=== PATIENT | female | born 1985 | race Caucasian/White ===

== ENCOUNTER 2017-12-16 10:57 | Emergency (ER) | payer BC, OTHER ==
[~2017-12-16] VITALS: Ht 175.3 cm; Wt 77.1 kg
--- NOTE | 2017-12-16 11:54 | ED General ---
General Chief Complaint: General Problems/Pain Stated Complaint: RANGE OF MOTION LOST IN R ARM Nursing Triage Note: PT PRESENTS TO ER WITH COMPLAINT OF RIGHT ARM NUMBNESS AND RIGHT LEG WEAKNESS FOR ROUGHLY 4 WEEKS. PT STATES IT COMES AND GOES. STATES SHE WENT TO URGENT CARE AND WAS TOLD SHE HAD WALKING PNEUMONIA. STATES SHE THEN WENT TO DR OFFICE AND DID NOT HAVE WALKING PNEUMONIA. Nursing Sepsis Screen: No Definite Risk Source of Information: Patient, Family () Exam Limitations: No Limitations History of Present Illness Date Seen by Provider: Dec 16, 2017 Time Seen by Provider: 11:10 Initial Comments Patient is a 32-year-old female who presents to the emergency room with complaints of intermittent right arm numbness, right leg weakness, for the past 3 weeks. She states that she's been seen by urgent care and was told that she had walking pneumonia and was started on Levaquin which she stopped taking after a couple of doses and has been seen by her primary care provider at the [facility] in [place] twice for similar complaints and she was instructed to go to the emergency room today when she tried to make a third appointment. She reports that she has had low-grade fevers and she also had a tick bite around 2- 3 weeks ago. Timing/Duration: Other (3 weeks) Associated Systoms: Cough, Fever/Chills, Weakness (right arm) Allergies and Home Medications Allergies Coded Allergies: No Known Drug Allergies (Unverified , 12/16/17) Home Medications Doxycycline Hyclate 100 Mg Tablet, 100 MG PO BID Prescribed by: LAKSHMI DIAZ on 12/16/17 1309 Patient Home Medication List Home Medication List Reviewed: Yes Review of Systems Review of Systems Constitutional: see HPI, chills, fever, malaise, weakness Respiratory: see HPI, cough Musculoskeletal: see HPI, muscle weakness (right arm and leg) Psychiatric/Neurological: See HPI, Numbness (right arm), Tingling (right arm) All Other Systems Reviewed Negative Unless Noted: Yes Past Rtgfkdb-Fgwjvu-Iknpbe Hx Past Med/Social Hx: Reviewed Nursing Past Med/Soc Hx Patient Social History Alcohol Use: Occasionally Uses Recreational Drug Use: No Smoking Status: Current Everyday Smoker Type Used: Cigarettes Recent Foreign Travel: No Contact w/Someone Who Travel: No Recent Infectious Disease Expo: No Recent Hopitalizations: No Immunizations Up To Date Tetanus Booster (TDap): Unknown PED Vaccines UTD: Yes Seasonal Allergies Seasonal Allergies: No Past Medical History Surgeries: No Respiratory: No Cardiac: No Neurological: No Genitourinary: No Gastrointestinal: No Musculoskeletal: No Endocrine: No HEENT: No Cancer: No Psychosocial: No Integumentary: No Blood Disorders: No Family Medical History Reviewed Nursing Family Hx Physical Exam Vital Signs Vital Signs - First Documented 12/16/17 11:08 Temp 99.9 Pulse 94 Resp 20 B/P (MAP) 178/25 (75) Pulse Ox 95 O2 Delivery Room Air Capillary Refill : Less Than 3 Seconds Height, Weight, BMI Height: 5'9.00" Weight: 170lbs. oz. 77.146543dq; BMI Method:Stated General Appearance: No Apparent Distress, WD/WN Eyes: Bilateral Eye Normal Inspection, Bilateral Eye PERRL, Bilateral Eye EOMI HEENT: PERRL/EOMI, TMs Normal, Normal ENT Inspection Neck: Full Range of Motion, Normal Inspection, Non Tender, Supple, Carotid Bruit Respiratory: Chest Non Tender, Lungs Clear, Normal Breath Sounds, No Accessory Muscle Use, No Respiratory Distress Cardiovascular: Regular Rate, Rhythm, No Edema, No Gallop, No JVD, No Murmur, Normal Peripheral Pulses Extremity: Normal Capillary Refill, Normal Inspection, Normal Range of Motion, Non Tender, No Calf Tenderness, No Pedal Edema Neurologic/Psychiatric: Alert, Oriented x3, Normal Mood/Affect, Motor Weakness (patient does have motor weakness to the right arm when asked to push or pull against force.) Skin: Normal Color, Warm/Dry Comments NIH- 0 Focused Exam Lactate Level 12/16/17 11:35: Lactic Acid Level 0.86 Lactic Acid Level Progress/Results/Core Measures Suspected Sepsis Recent Fever Within 48 Hours: No Infection Criteria Present: None New/Unexplained Altered Menta: No Sepsis Screen: No Definite Risk SIRS Temperature:99.9 Pulse: 94 Respiratory Rate: 20 Laboratory Tests 12/16/17 11:35: White Blood Count 9.4 Blood Pressure 178 /25 Mean: 75 12/16/17 11:35: Lactic Acid Level 0.86 Laboratory Tests 12/16/17 11:35: Creatinine 0.85, INR Comment 1.0, Platelet Count 231, Total Bilirubin 0.5 Results/Orders Lab Results My Orders Vital Signs/I&O Capillary Refill : Less Than 3 Seconds Blood Pressure Mean: 75 Progress Note : Time: 13:00 Progress Note I have seen and evaluated the patient. I have informed her of normal imaging studies and laboratory findings. She reports that her symptoms have improved at this time. Her numbness has let up. I will be starting her on doxycycline for possible tickborne illness. I have set up an appointment with Judith Dickens for close follow up. She agrees with plan of care, return precautions were given. Diagnostic Imaging Diagonstic Imaging: Xray, CT Plain Films/CT/US/NM/MRI: chest, head Comments NAME: SHAY LAMBERT [facility] REC#: [id number] PHYSICIAN: LAKSHMI DIAZ CC: LAKSHMI DIAZ; MATIAS YOUNG DO Page 1 of 1 RADIOLOGY REPORT VIA [place], [place] CC: LAKSHMI DIAZ; MATIAS YOUNG DO Page 1 of 1 RADIOLOGY REPORT NAME: SHAY LAMBERT [facility] REC#: [id number] PT STATUS: REG ER : 1985 PHYSICIAN: LAKSHMI DIAZ ADMIT DATE: 12/16/17/ER Signed Date of Exam: 12/16/17 CT HEAD WO PROCEDURE: CT head without contrast. TECHNIQUE: Multiple contiguous axial images were obtained through the brain without the use of intravenous contrast. INDICATION: Loss of feeling in right arm and right leg with past 4 days. This occurred approximately 3-4 weeks ago as well with sensation coming back up to 4-5 days. COMPARISON: None FINDINGS: There is no midline shift or mass effect. The ventricles and sulci are unremarkable. No evidence for acute intracranial hemorrhage, abnormal extra-axial fluid collections or cerebral edema is present. The basilar cisterns are unremarkable. The bony calvarium is intact. The visualized paranasal sinuses and mastoid air cells are clear. IMPRESSION: Negative appearing noncontrast CT of the head. Given presenting symptoms, if further imaging desired, followup MRI with and without contrast may be additional benefit. Dictated by: Dictated on workstation # [id number] Dict: 12/16/17 1243 Trans: 12/16/17 1245 Interpreted by: MATIAS YOUNG DO Electronically signed by: MATIAS YOUNG DO 12/16/17 1245 NAME: SHAY LAMBERT [facility] REC#: [id number] PHYSICIAN: LAKSHMI DIAZ CC: LAKSHMI DIAZ; MATIAS YOUNG DO Page 1 of 1 RADIOLOGY REPORT VIA [facility] [place], [place] CC: LAKSHMI DIAZ; MATIAS YOUNG DO Page 1 of 1 RADIOLOGY REPORT NAME: SHAY LAMBERT [facility] REC#: [id number] PT STATUS: REG ER : 1985 PHYSICIAN: LAKSHMI DIAZ ADMIT DATE: 12/16/17/ER Signed Date of Exam: 12/16/17 CHEST 1 VIEW, AP/PA ONLY INDICATION: Loss of feeling right arm and leg past 4 days. Similar symptoms 3-4 weeks ago. TECHNIQUE: Single view chest 2:59 PM. CORRELATION STUDY: 01/07/2016 FINDINGS: The heart size, mediastinal configuration and pulmonary vascularity are within normal limits. The lungs are clear with no consolidating infiltrate. There is no significant effusion or pneumothorax. Slight rightward curvature of the thoracic spine again demonstrated. IMPRESSION: 1. No radiographic findings to suggest acute abnormality of the chest. Dictated by: Dictated on workstation # [id number] Dict: 12/16/17 1249 Trans: 12/16/17 1251 Interpreted by: MATIAS YOUNG DO Electronically signed by: MATIAS YOUNG DO 12/16/17 1251 Reviewed: Reviewed by Me Departure Impression Primary Impression: Tick-borne disease Additional Impression: Muscle weakness (generalized) Disposition: HOME, SELF-CARE Condition: Stable/Unchanged Departure-Patient Inst. Decision time for Depature: 13:05 Referrals: UNKNOWN (PCP) Primary Care Physician Patient Instructions: Peripheral Neuropathy (DC), [place] Spotted Fever (DC) Add. Discharge Instructions: Take medications as directed. You may use ibuprofen and Tylenol to treat the fevers as directed by the bottle. Follow-up with primary care provider on Tuesday. I have made you an appointment with Judith Dickens [employer] REPA[employer] HELPER at 10 AM on 12/19/17. Return back to the emergency room for any worsening symptoms or concerns as needed. All discharge instructions reviewed with patient and/or family. Voiced understanding. Scripts Doxycycline Hyclate (Doxycycline Hyclate) 100 Mg Tablet 100 MG PO BID for 7 Days, #14 TAB Prov: LAKSHMI DIAZ 12/16/17 LAKSHMI DIAZ Dec 16, 2017 11:54
[2017-12-16 11:55] LABS: BASOPHILS # (AUTO) 0.1 10^3/uL (0.0-0.1); BASOPHILS % (AUTO) 1 % (0-10); EOSINOPHILS # (AUTO) 0.3 10^3/uL (0.0-0.3); EOSINOPHILS % (AUTO) 3 % (0-10); HEMATOCRIT 44 % (35-52); HEMOGLOBIN 15.7 G/DL (11.5-16.0); LYMPHOCYTES # (AUTO) 2.7 X 10^3 (1.0-4.0); LYMPHOCYTES % (AUTO) 29 % (12-44); MEAN CORPUSCULAR HEMOGLOBIN 33 PG (25-34); MEAN CORPUSCULAR HGB CONC 35 G/DL (32-36); MEAN CORPUSCULAR VOLUME 95 FL (80-99); MEAN PLATELET VOLUME 9.1 FL (7.4-10.4); MONOCYTES # (AUTO) 0.5 X 10^3 (0.0-1.0); MONOCYTES % (AUTO) 6 % (0-12); NEUTROPHILS # (AUTO) 5.8 X 10^3 (1.8-7.8); NEUTROPHILS % (AUTO) 62 % (42-75); PLATELET COUNT 231 10^3/uL (130-400); RED CELL DISTRIBUTION WIDTH 12.4 % (10.0-14.5); WHITE BLOOD COUNT 9.4 10^3/uL (4.3-11.0)
[2017-12-16 11:59] LABS: BILIRUBIN,URINE NEGATIVE (NEGATIVE); CLARITY,URINE CLEAR; COLOR,URINE YELLOW; GLUCOSE, URINE (UA) NEGATIVE (NEGATIVE); KETONES,URINE NEGATIVE (NEGATIVE); LEUKOCYTE ESTERASE ,URINE NEGATIVE (NEGATIVE); NITRITE,URINE NEGATIVE (NEGATIVE); PH,URINE 8 (5-9); PROTEIN,URINE NEGATIVE (NEGATIVE); UROBILINOGEN,URINE NORMAL (NORMAL)
[2017-12-16 12:09] LABS: PROTHROMBIN TIME PATIENT 12.8 SEC (12.2-14.7)
[2017-12-16 12:14] LABS: ALANINE AMINOTRANSFERASE 7 U/L (0-55); ALBUMIN 4.6 GM/DL (3.2-4.5); ALKALINE PHOSPHATASE 61 U/L (40-136); BACTERIA,URINE NEGATIVE /HPF; BILIRUBIN,TOTAL 0.5 MG/DL (0.1-1.0); BUN/CREATININE RATIO 18; CALCIUM 9.6 MG/DL (8.5-10.1); CARBON DIOXIDE 22 MMOL/L (21-32); CHLORIDE 106 MMOL/L (98-107); CREATININE SERUM 0.85 MG/DL (0.60-1.30); GFR ESTIMATED > 60; GLUCOSE 97 MG/DL (70-105); POTASSIUM 3.8 MMOL/L (3.6-5.0); SODIUM 138 MMOL/L (135-145); SQUAMOUS EPITHELIAL CELL,UR 0-2 /HPF; TOTAL PROTEIN 7.4 GM/DL (6.4-8.2)
--- NOTE | 2017-12-16 12:47 | Diagnostic Imaging Report ---
PROCEDURE: CT head without contrast. TECHNIQUE: Multiple contiguous axial images were obtained through the brain without the use of intravenous contrast. INDICATION: Loss of feeling in right arm and right leg with past 4 days. This occurred approximately 3-4 weeks ago as well with sensation coming back up to 4-5 days. COMPARISON: None FINDINGS: There is no midline shift or mass effect. The ventricles and sulci are unremarkable. No evidence for acute intracranial hemorrhage, abnormal extra-axial fluid collections or cerebral edema is present. The basilar cisterns are unremarkable. The bony calvarium is intact. The visualized paranasal sinuses and mastoid air cells are clear. IMPRESSION: Negative appearing noncontrast CT of the head. Given presenting symptoms, if further imaging desired, followup MRI with and without contrast may be additional benefit. Dictated by: Dictated on workstation # [id number]
--- NOTE | 2017-12-16 12:53 | Diagnostic Imaging Report ---
INDICATION: Loss of feeling right arm and leg past 4 days. Similar symptoms 3-4 weeks ago. TECHNIQUE: Single view chest 2:59 PM. CORRELATION STUDY: 01/07/2016 FINDINGS: The heart size, mediastinal configuration and pulmonary vascularity are within normal limits. The lungs are clear with no consolidating infiltrate. There is no significant effusion or pneumothorax. Slight rightward curvature of the thoracic spine again demonstrated. IMPRESSION: 1. No radiographic findings to suggest acute abnormality of the chest. Dictated by: Dictated on workstation # [id number]
[2017-12-16] MEDS ORDERED: DOXY100T2 PO (13:09)
[2017-12-16 13:36] VITALS: BP 145/101
== END 2017-12-16 13:36 | disposition home or self-care (01) ==
LOC: EDUNIT# 10:57 → ER 10:58
DX: A93.8 Other specified arthropod-borne viral fevers (principal); M62.81 Muscle weakness (generalized); R20.0 Anesthesia of skin; F17.210 Nicotine dependence, cigarettes, uncomplicated
CPT/HCPCS: 36415; 70450; 71045; 80053; 81000; 83605; 84703; 85025; 85610; 85730; 86618; 86666; 86668; 86757; 87040; 87088

== ENCOUNTER → 2017-12-16 | Outpatient (CLI) | payer BC ==
[~2017-12-16] MED LIST: DOXY100T2 PO; GADOBUTROL 7.5 MMOL/7.5 ML (GADAVIST) VIAL IV ONE
--- NOTE | 2017-12-16 18:56 | Diagnostic Imaging Report ---
PROCEDURE: MR imaging of the brain with and without contrast. TECHNIQUE: Multiplanar, multisequence MR imaging of the brain was performed with and without contrast. INDICATION: Loss of feeling and heaviness in the right arm and right leg for the last four days. COMPARISON: No prior MRI studies are available for comparison. FINDINGS: The ventricles and sulci are within normal limits. No sulcal effacement, midline shift, or hemorrhage is detected. There are multiple foci of abnormal signal identified on FLAIR sequences. Several are in the periventricular location, in the mahoney radiata, as well as centrum semiovale on the left. There is abnormal signal in the lateral portion of the left thalamus as well as in the peritrigonal location of the lateral ventricles bilaterally. Increased signal is also identified on diffusion-weighted sequences; however, this may represent T2 shine-through artifact. No abnormal enhancement is identified following contrast administration. Corpus callosum is unremarkable. Sella and parasellar structures are unremarkable. IMPRESSION: There are multiple foci of periventricular white matter signal abnormality noted. Features are concerning for a demyelinating process such as MS. No abnormal enhancement following contrast is seen to suggest active demyelination. Dictated by: Dictated on workstation # [id number]
== END ==
LOC: RAD 17:22
PROVIDERS: ATTEND Nurse Practitioner
DX: R90.82 White matter disease, unspecified (principal); R20.0 Anesthesia of skin
CPT/HCPCS: 70553

== ENCOUNTER → 2017-12-29 | Outpatient (CLI) | payer BC ==
--- NOTE | 2017-12-29 17:45 | Diagnostic Imaging Report ---
EXAM: MRI thoracic spine without and with intravenous contrast. DATE: December 29, 2017. INDICATION: 32-year-old female, loss of feeling and heaviness in the right arm and leg for four days. COMPARISON: MRI brain with and without contrast December 16, 2017. TECHNIQUE: Multiple pre- and post-contrast MRI sequences of the thoracic spine were obtained. FINDINGS: The alignment of the thoracic spine is unremarkable. There is a small benign L1 vertebral body hemangioma. The additional bone marrow signal is unremarkable. There are minimal disc degenerative changes of the thoracic spine. There is no sizable thoracic disc protrusion or extrusion. There is no spinal stenosis at the thoracic spine levels. There is no identified abnormal signal within the visualized portions of the spinal cord. There is no abnormal contrast enhancement. IMPRESSION: 1. No findings to suggest demyelinating disease specifically at the level of the thoracic spine. 2. No abnormal cord signal or enhancement. 3. No sizable thoracic disc protrusion or extrusion. No spinal stenosis at the thoracic spine levels. 4. Unremarkable bone marrow signal. Dictated by: Dictated on workstation # [id number]
--- NOTE | 2017-12-29 18:00 | Diagnostic Imaging Report ---
PROCEDURE: MR imaging cervical spine with and without contrast. TECHNIQUE: Multiplanar and multisequence MRI of the cervical spine was performed with and without contrast. INDICATION: Loss of feeling and heaviness in right arm and right leg. No comparison of the cervical spine available. FINDINGS: Cervical spine alignment is normal. Vertebral body heights appear well maintained. There is no focal marrow signal abnormality present to suggest acute osseous injury or underlying osseous lesion. There is no cord signal abnormality or abnormal cord expansion. There is no abnormal epidural process. C2-C3 unremarkable. C3-C4 demonstrates minimal spondylitic ridging without significant stenosis. C4-C5 demonstrates tiny diffuse disc bulge without significant stenosis. C5-C6 demonstrates mild disc bulging. There is minimal effacement of the ventral aspect of the thecal sac. There is no significant foraminal stenosis. C6-C7 demonstrates minimal disc bulge without significant stenosis. C7-T1 unremarkable. Soft tissues of the neck demonstrate no acute process. Vascular flow voids appear preserved. IMPRESSION: 1. Normal alignment of the cervical spine without evidence of an acute osseous abnormality or suspicious marrow replacing lesion. 2. No cord signal abnormality or abnormal epidural process. 3. Tiny cervical disc bulges. There are no MR findings of significant central canal or neuroforaminal stenosis. Dictated by: Dictated on workstation # [id number]
== END ==
LOC: RAD 16:05
PROVIDERS: ATTEND Psychiatry & Neurology Neurology
DX: M50.20 Other cervical disc displacement, unspecified cervical region (principal); G37.9 Demyelinating disease of central nervous system, unspecified
CPT/HCPCS: 72156; 72157

== ENCOUNTER 2018-03-06 13:21 | Inpatient (IN) | payer BC ==
[~2018-03-06] VITALS: Ht 175.3 cm; Wt 78.0 kg
[~2018-03-06 13:21] MED LIST changes: -GADOBUTROL 7.5 MMOL/7.5 ML (GADAVIST) VIAL IV ONE
[2018-03-06 14:18] LABS: BASOPHILS % (AUTO) 0 % (0-10); EOSINOPHILS # (AUTO) 0.5 10^3/uL (0.0-0.3); EOSINOPHILS % (AUTO) 6 % (0-10); HEMATOCRIT 43 % (35-52); HEMOGLOBIN 15.1 G/DL (11.5-16.0); LYMPHOCYTES # (AUTO) 0.7 X 10^3 (1.0-4.0); LYMPHOCYTES % (AUTO) 9 % (12-44); MEAN CORPUSCULAR HEMOGLOBIN 33 PG (25-34); MEAN CORPUSCULAR HGB CONC 35 G/DL (32-36); MEAN CORPUSCULAR VOLUME 92 FL (80-99); MEAN PLATELET VOLUME 9.6 FL (7.4-10.4); MONOCYTES # (AUTO) 0.5 X 10^3 (0.0-1.0); MONOCYTES % (AUTO) 6 % (0-12); NEUTROPHILS % (AUTO) 78 % (42-75); PLATELET COUNT 150 10^3/uL (130-400); RED BLOOD COUNT 4.63 10^6/uL (4.35-5.85); RED CELL DISTRIBUTION WIDTH 12.4 % (10.0-14.5); WHITE BLOOD COUNT 7.8 10^3/uL (4.3-11.0)
[2018-03-06 14:38] LABS: ALANINE AMINOTRANSFERASE 9 U/L (0-55); ALBUMIN 3.8 GM/DL (3.2-4.5); ALKALINE PHOSPHATASE 57 U/L (40-136); BILIRUBIN,TOTAL 0.6 MG/DL (0.1-1.0); BUN/CREATININE RATIO 12; CALCIUM 8.8 MG/DL (8.5-10.1); CARBON DIOXIDE 23 MMOL/L (21-32); CHLORIDE 102 MMOL/L (98-107); CREATININE SERUM 0.99 MG/DL (0.60-1.30); GFR ESTIMATED > 60; GLUCOSE 94 MG/DL (70-105); LIPASE 10 U/L (8-78); POTASSIUM 3.8 MMOL/L (3.6-5.0); SODIUM 136 MMOL/L (135-145); TOTAL PROTEIN 6.2 GM/DL (6.4-8.2)
[2018-03-06 14:40] LABS: CLARITY,URINE VERY CLOUDY; COLOR,URINE YELLOW; GLUCOSE, URINE (UA) NEGATIVE (NEGATIVE); KETONES,URINE 1+ (NEGATIVE); NITRITE,URINE POSITIVE (NEGATIVE); PH,URINE 6 (5-9); PROTEIN,URINE 3+ (NEGATIVE)
[2018-03-06 14:41] LABS: BACTERIA,URINE MODERATE /HPF; BILIRUBIN,URINE 1+ (NEGATIVE); LEUKOCYTE ESTERASE ,URINE 1+ (NEGATIVE); RBC,URINE 0-2 /HPF; UROBILINOGEN,URINE 4 MG/DL (NORMAL)
[2018-03-06] MEDS ORDERED: NS IV 1000 ML 1,000 ML IV ONE ×2 (14:46→14:47)
[2018-03-06] MEDS ORDERED: cefTRIAXone FOR IV USE 1,000 MG in NS (IVPB) 50 ML IV ONE (15:00)
[2018-03-06] MEDS ORDERED: DIME1CAP PO (15:24)
--- NOTE | 2018-03-06 15:25 | ED Abdominal Pain ---
General Chief Complaint: Abdominal/GI Problems Stated Complaint: SEVERE ABD PAIN Nursing Triage Note: AMB TO ROOM WITH PATIENT REPORTS THAT SINCE TUE HAS HAD ABD PAIN. WAS SEEN IN [facility] UTI AND STARTED ON CIPRO. WAS SEEN IN [place] ER YESTERDAY HAD NEG CT AND LAB. CON'T TO HAVE PAIN MORE IN EPIGASTRCI AREA. WAS TOLD IN [place] TO STOP CIPRO. Sepsis Screen: Possible Sepsis Risk Source of Information: Patient, Old Records Exam Limitations: No Limitations History of Present Illness Date Seen by Provider: Mar 06, 2018 Time Seen by Provider: 13:25 Initial Comments This 32-year-old young lady presents to the emergency room with complaints of fever, upper abdominal pain, vomiting, and diarrhea. She was seen at the [facility] in [place] last March 02 and was started on Cipro for urinary tract infection. She was then seen at the emergency room in [place] on TuesdayMarch 04. She reports a CT scan was performed there that showed only gastroenteritis. UA was clear at that time. She was told to stop her antibiotics. Today she has worsening symptoms with epigastric pain. She is noted to be febrile and tachycardic on presentation. She is treated for MS but denies any other chronic problems. Allergies and Home Medications Allergies Coded Allergies: Penicillins (Verified Allergy, Unknown, HIVES, 03/06/18) Had hives with penicillin as a young child. No anaphylaxis. Patient Home Medication List Home Medication List Reviewed: Yes Review of Systems Review of Systems Constitutional: see HPI, fever EENTM: No Symptoms Reported Respiratory: No Symptoms Reported Cardiovascular: See HPI, Other (tachycardia) Gastrointestinal: See HPI Genitourinary: See HPI Musculoskeletal: no symptoms reported Skin: no symptoms reported Psychiatric/Neurological: No Symptoms Reported Endocrine: No Symptoms Reported Hematologic/Lymphatic: No Symptoms Reported Past Kdvodqd-Jnptbr-Ourtvm Hx Past Med/Social Hx: Reviewed and Corrections made Patient Social History Alcohol Use: Occasionally Uses Recreational Drug Use: No Smoking Status: Current Everyday Smoker Type Used: Cigarettes Recent Foreign Travel: No Contact w/Someone Who Travel: No Recent Infectious Disease Expo: No Recent Hopitalizations: No Immunizations Up To Date Tetanus Booster (TDap): Unknown PED Vaccines UTD: Yes Seasonal Allergies Seasonal Allergies: No Past Medical History Surgeries: No Respiratory: No Cardiac: No Neurological: Yes Multiple Sclerosis Genitourinary: No Gastrointestinal: No Musculoskeletal: No Endocrine: No HEENT: No Cancer: No Psychosocial: No Integumentary: No Blood Disorders: No Physical Exam Vital Signs Vital Signs - First Documented 03/06/18 14:00 Temp 101.0 Pulse 112 Resp 18 B/P (MAP) 134/84 (101) Pulse Ox 98 O2 Delivery Room Air Capillary Refill : Less Than 3 Seconds Height/Weight/BMI Height: 5'9.00" Weight: 172lbs. oz. 78.035696ao; BMI Method:Stated General Appearance: WD/WN, mild distress HEENT: normal ENT inspection, pharynx normal Neck: normal inspection Respiratory: lungs clear, normal breath sounds, no respiratory distress, no accessory muscle use Cardiovascular: no edema, no murmur, tachycardia Gastrointestinal: normal bowel sounds, soft, tenderness (Epigastric) Extremities: normal inspection, no pedal edema Neurologic/Psychiatric: sql server developer II-XII nml as tested, no motor/sensory deficits, alert, normal mood/affect, oriented x 3 Skin: normal color, warm/dry Focused Exam Lactate Level 03/06/18 15:06: Lactic Acid Level 1.01 Lactic Acid Level Laboratory Tests Test 03/06/18 15:06 Lactic Acid Level 1.01 MMOL/L (0.50-2.00) Progress/Results/Core Measures Results/Orders Lab Results Laboratory Tests Test 03/06/18 14:11 03/06/18 14:19 03/06/18 15:06 Range/Units White Blood Count 7.8 4.3-11.0 10^3/uL Red Blood Count 4.63 4.35-5.85 10^6/uL Hemoglobin 15.1 11.5-16.0 G/DL Hematocrit 43 35-52 % Mean Corpuscular Volume 92 80-99 FL Mean Corpuscular Hemoglobin 33 25-34 PG Mean Corpuscular Hemoglobin Concent 35 32-36 G/DL Red Cell Distribution Width 12.4 10.0-14.5 % Platelet Count 150 130-400 10^3/uL Mean Platelet Volume 9.6 7.4-10.4 FL Neutrophils (%) (Auto) 78 H 42-75 % Lymphocytes (%) (Auto) 9 L 12-44 % Monocytes (%) (Auto) 6 0-12 % Eosinophils (%) (Auto) 6 0-10 % Basophils (%) (Auto) 0 0-10 % Neutrophils # (Auto) 6.0 1.8-7.8 X 10^3 Lymphocytes # (Auto) 0.7 L 1.0-4.0 X 10^3 Monocytes # (Auto) 0.5 0.0-1.0 X 10^3 Eosinophils # (Auto) 0.5 H 0.0-0.3 10^3/uL Basophils # (Auto) 0.0 0.0-0.1 10^3/uL Sodium Level 136 135-145 MMOL/L Potassium Level 3.8 3.6-5.0 MMOL/L Chloride Level 102 98-107 MMOL/L Carbon Dioxide Level 23 21-32 MMOL/L Anion Gap 11 5-14 MMOL/L Blood Urea Nitrogen 12 7-18 MG/DL Creatinine 0.99 0.60-1.30 MG/DL Estimat Glomerular Filtration Rate > 60 BUN/Creatinine Ratio 12 Glucose Level 94 70-105 MG/DL Calcium Level 8.8 8.5-10.1 MG/DL Corrected Calcium 9.0 8.5-10.1 MG/DL Total Bilirubin 0.6 0.1-1.0 MG/DL Aspartate Amino Transf (AST/SGOT) 17 5-34 U/L Alanine Aminotransferase (ALT/SGPT) 9 0-55 U/L Alkaline Phosphatase 57 40-136 U/L Total Protein 6.2 L 6.4-8.2 GM/DL Albumin 3.8 3.2-4.5 GM/DL Lipase 10 8-78 U/L Serum Test, Qualitative NEGATIVE NEGATIVE Urine Color YELLOW Urine Clarity VERY CLOUDY H Urine pH 6 5-9 Urine Specific [place] 1.015 L 1.016-1.022 Urine Protein 3+ H NEGATIVE Urine Glucose (UA) NEGATIVE NEGATIVE Urine Ketones 1+ H NEGATIVE Urine Nitrite POSITIVE H NEGATIVE Urine Bilirubin 1+ H NEGATIVE Urine Urobilinogen 4 H NORMAL MG/DL Urine Leukocyte Esterase 1+ H NEGATIVE Urine RBC (Auto) 3+ H NEGATIVE Urine RBC 0-2 /HPF Urine WBC 2-5 /HPF Urine Squamous Epithelial Cells 5-10 /HPF Urine Crystals NONE /LPF Urine Bacteria MODERATE H /HPF Urine Casts NONE /LPF Urine Mucus NEGATIVE /LPF Urine Culture Indicated YES Lactic Acid Level 1.01 0.50-2.00 MMOL/L My Orders Orders - NEELAM PARRY MD Cbc With Automated Diff (03/06/18 13:25) Comprehensive Metabolic Panel (03/06/18 13:25) Hcg,Qualitative Serum (03/06/18 13:25) Lipase (03/06/18 13:25) Ua Culture If Indicated (03/06/18 13:25) Saline Lock/Iv-Start (03/06/18 13:25) Urine Culture (03/06/18 14:19) Ns Iv 1000 Ml (Sodium Chloride 0.9%) (03/06/18 14:46) Blood Culture (03/06/18 14:46) Lactic Acid Analyzer (03/06/18 14:46) Ns Iv 1000 Ml (Sodium Chloride 0.9%) (03/06/18 14:47) Ceftriaxone For Iv Use (Rocephin For I (03/06/18 15:00) Ketorolac Injection (Toradol Injection) (03/06/18 15:30) Medications Given in ED Current Medications Medications Dose Ordered Sig/Nena Route Start Time Stop Time Status Last Admin Dose Admin Ceftriaxone Sodium 1000 mg/ Sodium Chloride 50 ml @ 100 mls/hr ONCE ONCE IV 03/06/18 15:00 03/06/18 15:29 DC 03/06/18 15:32 100 MLS/HR Sodium Chloride 1,000 ml @ 0 mls/hr Q0M ONCE IV 03/06/18 14:46 03/06/18 14:48 DC 03/06/18 14:59 1,000 MLS/HR Sodium Chloride 1,000 ml @ 0 mls/hr Q0M ONCE IV 03/06/18 14:47 03/06/18 14:48 DC 03/06/18 15:31 1,000 MLS/HR Vital Signs/I&O 03/06/18 14:00 Temp 101.0 Pulse 112 Resp 18 B/P (MAP) 134/84 (101) Pulse Ox 98 O2 Delivery Room Air Blood Pressure Mean: 101 Progress Progress Note : Progress Note I contacted Judith Dickens staff at the [place] clinic. Urine culture showed multiple organisms consistent with normal camille. We will request records from her [place] ER visit. 2 L of IV fluids were ordered to administer in the ER along with 1 g of Rocephin. Case was discussed with Dr. Centeno who agrees with admission and treatment for UTI with sepsis. Pain is being treated with Toradol initially. Departure Communication (Admissions) Time/Spoke to Admitting Phy: 15:10 Dr. Centeno Impression Primary Impression: Sepsis Qualified Codes: A41.9 - Sepsis, unspecified organism Additional Impressions: Urinary tract infection Qualified Codes: N39.0 - Urinary tract infection, site not specified Epigastric pain Nausea vomiting and diarrhea Disposition: ADMITTED INPATIENT Condition: Improved Admissions Decision to Admit Reason: Admit from ER (General) Decision to Admit/Date: Mar 06, 2018 Time/Decision to Admit Time: 14:50 Departure-Patient Inst. Referrals: NO,LOCAL PHYSICIAN (PCP/Family) Primary Care Physician NEELAM PARRY MD Mar 06, 2018 15:25
[2018-03-06] MEDS ORDERED: KETOROLAC 30 MG/ML VIAL IVP ONE (15:30)
[2018-03-06 16:40] VITALS: BP 98/50
[2018-03-06] MEDS ORDERED: CATHETER FLUSH 10 ML SYR IV PRN (17:45)
[2018-03-06] MEDS: FAMOTIDINE 20MG/2ML IV (PEPCID) IV SCH ×2 (18:15→18:17)
[2018-03-06] MEDS: NS IV 1000 ML 1,000 ML IV SCH (18:16)
[2018-03-06] MEDS: fentaNYL INJECTION 100 MCG/2 ML AMP IV PRN ×2 (18:16→20:34)
[2018-03-06] MEDS ORDERED: FLU QUADRIvalent (5+ YOA) 2018-2019 (AFLURIA) 0.5 ML IM ONE (19:45)
[2018-03-06 20:00] VITALS: BP 118/72
[2018-03-06] MEDS: KETOROLAC 15 MG/ML VIAL IV PRN (21:44)
[2018-03-07] VITALS (7 sets, daily range): BP systolic 100–114; BP diastolic 56–74
[2018-03-07] MEDS: NS IV 1000 ML 1,000 ML IV SCH ×3 (00:57→22:26)
[2018-03-07] MEDS: fentaNYL INJECTION 100 MCG/2 ML AMP IV PRN ×3 (00:58→11:08)
[2018-03-07] MEDS: IBUPROFEN 600 MG (MOTRIN) TAB PO PRN (01:46)
[2018-03-07] MEDS: KETOROLAC 15 MG/ML VIAL IV PRN ×4 (03:45→23:32)
[2018-03-07 06:15] LABS: BASOPHILS % (AUTO) 0 % (0-10); EOSINOPHILS # (AUTO) 0.5 10^3/uL (0.0-0.3); EOSINOPHILS % (AUTO) 8 % (0-10); HEMATOCRIT 38 % (35-52); HEMOGLOBIN 12.9 G/DL (11.5-16.0); LYMPHOCYTES % (AUTO) 17 % (12-44); MEAN CORPUSCULAR HEMOGLOBIN 32 PG (25-34); MEAN CORPUSCULAR HGB CONC 34 G/DL (32-36); MEAN CORPUSCULAR VOLUME 94 FL (80-99); MEAN PLATELET VOLUME 9.8 FL (7.4-10.4); MONOCYTES # (AUTO) 0.4 X 10^3 (0.0-1.0); MONOCYTES % (AUTO) 7 % (0-12); NEUTROPHILS # (AUTO) 4.3 X 10^3 (1.8-7.8); NEUTROPHILS % (AUTO) 68 % (42-75); PLATELET COUNT 123 10^3/uL (130-400); RED CELL DISTRIBUTION WIDTH 12.2 % (10.0-14.5); WHITE BLOOD COUNT 6.3 10^3/uL (4.3-11.0)
[2018-03-07 06:30] LABS: BUN/CREATININE RATIO 15; CALCIUM 7.8 MG/DL (8.5-10.1); CARBON DIOXIDE 17 MMOL/L (21-32); CHLORIDE 111 MMOL/L (98-107); CREATININE SERUM 0.74 MG/DL (0.60-1.30); GFR ESTIMATED > 60; GLUCOSE 78 MG/DL (70-105); POTASSIUM 3.2 MMOL/L (3.6-5.0); SODIUM 138 MMOL/L (135-145)
[2018-03-07] MEDS ORDERED: CIPR500T4 PO (08:34)
[2018-03-07] MEDS: FAMOTIDINE 20MG/2ML IV (PEPCID) IV SCH ×2 (08:46→20:08)
[2018-03-07] MEDS: cefTRIAXone 1 GM/NS 50 ML IVPB IV SCH ×2 (08:47)
--- NOTE | 2018-03-07 11:17 | History & Physical-Hospitalist ---
History of Present Illness HPI/Chief Complaint The patient is a 32-year-old white female who presented to the emergency room yesterday with complaints of fever and generalized malaise. She reported that she had been seen at a walk-in clinic earlier last week and had been diagnosed as having a urinary tract infection and was placed on Cipro. She was then seen again at another facility on Tuesday and told that she did not have a urinary tract infection and the Cipro was stopped. She really return to our emergency room yesterday and it certainly appears that she had a full-blown urinary tract infection the basis of her urine character. She was recently diagnosed as having multiple sclerosis. She has been seen by the neurology Department at [facility] and was started on a new medication about 3 weeks ago. She reports she has not really felt well during this period of time and wonders if that is somehow related. She reports occasional urinary tract infections through her adult life. During the night she had multiple fevers documented with a peak of 103.1. Her white blood count was 7800 in the emergency room and 6300 this morning. She now reports that she is hungry and has not suffered from any nausea. Date Seen 03/07/18 Time Seen by a Provider: 11:12 Attending Physician Justin Means MD PCP Benny Iyer MD Referring Physician Date of Admission Mar 06, 2018 at 15:21 Home Medications & Allergies Home Medications Reviewed patient Home Medication Reconciliation performed by pharmacy medication reconciliations bench lay out technician and/or nursing. Patients Allergies have been reviewed. Allergies Allergies Coded Allergies Penicillins (Verified Allergy, Unknown, HIVES, 03/06/18) Had hives with penicillin as a young child. No anaphylaxis. Past Fzsjend-Akkbna-Unlnie Hx Past Med/Social Hx: Reviewed and Corrections made Patient Social History Alcohol Use: Occasionally Uses Recreational Drug Use: No Smoking Status: Current Everyday Smoker Type Used: Cigarettes Physical Abuse Screen: No Sexual Abuse: No Recent Foreign Travel: No Contact w/other who traveled: No Recent Hopitalizations: No Recent Infectious Disease Expo: No Immunizations Up To Date Tetanus Booster (TDap): Unknown Pediatric: Yes Seasonal Allergies Seasonal Allergies: No Past Medical History Neurological: Multiple Sclerosis History of Blood Disorders: No Review of Systems Constitutional: see HPI EENTM: no symptoms reported Respiratory: no symptoms reported Cardiovascular: no symptoms reported Gastrointestinal: no symptoms reported Genitourinary: dysuria, frequency Musculoskeletal: other (multiple sclerosis) Skin: no symptoms reported Psychiatric/Neurological: Numbness, Paresthesia (multiple sclerosis), Weakness Physical Exam Physical Exam Vital Signs Vital Signs - First Documented 03/06/18 14:00 Temp 101.0 Pulse 112 Resp 18 B/P (MAP) 134/84 (101) Pulse Ox 98 O2 Delivery Room Air Capillary Refill : Less Than 3 Seconds Height, Weight, BMI Height: 5'9.00" Weight: 172lbs. 0.0oz. 78.486485ch; 25.4 BMI Method:Stated General Appearance: Other (she is alert and her cheeks are flushed) Eyes: Bilateral Eye Normal Inspection HEENT: Normal ENT Inspection Neck: Full Range of Motion, Normal Inspection, Non Tender, Supple, Carotid Bruit Respiratory: Normal Breath Sounds Cardiovascular: Regular Rate, Rhythm Gastrointestinal: Normal Bowel Sounds, No Organomegaly, No Pulsatile Mass, Non Tender, Soft Back: Normal Inspection Extremity: Normal Capillary Refill, Normal Inspection, Normal Range of Motion, Non Tender, No Calf Tenderness, No Pedal Edema Neurologic/Psychiatric: Alert, Oriented x3 Skin: Normal Color, Warm/Dry Results Results/Procedures Labs Laboratory Tests 03/06/18 14:11 03/07/18 05:50 Patient resulted labs reviewed. Assessment/Plan Admission Diagnosis Urinary tract infection. 2.recent diagnosis of multiple sclerosis Admission Status: Observation Assessment and Plan IV fluids. Antibiotics. Early discharge if possible Clinical Quality Measures DVT/VTE Risk/Contraindication: Risk Factor Score Per Nursin RFS Level Per Nursing on Admit: 1=Low/No VTE PPX JUSTIN MEANS MD Mar 07, 2018 11:17
[2018-03-07] MEDS: fentaNYL INJECTION 100 MCG/2 ML AMP IVP PRN ×2 (14:53→22:12)
[2018-03-07] MEDS: DIMETHYL FUMARATE 240 MG PO SCH (19:08)
[2018-03-08 04:20] VITALS: BP 112/67
[2018-03-08] MEDS: KETOROLAC 15 MG/ML VIAL IV PRN (05:48)
[2018-03-08] MEDS: NS IV 1000 ML 1,000 ML IV SCH ×2 (07:45→07:54)
[2018-03-08] MEDS: cefTRIAXone 1 GM/NS 50 ML IVPB IV SCH ×2 (07:56)
[2018-03-08] MEDS: FAMOTIDINE 20 MG (PEPCID) TABLET PO SCH ×2 (07:56→20:10)
[2018-03-08] MEDS: DIMETHYL FUMARATE 240 MG PO SCH ×2 (07:56→20:10)
[2018-03-08 08:00] VITALS: BP 125/72
[2018-03-08 09:11] LABS: BASOPHILS % (AUTO) 0 % (0-10); EOSINOPHILS # (AUTO) 0.7 10^3/uL (0.0-0.3); EOSINOPHILS % (AUTO) 11 % (0-10); HEMATOCRIT 34 % (35-52); HEMOGLOBIN 11.8 G/DL (11.5-16.0); LYMPHOCYTES # (AUTO) 1.3 X 10^3 (1.0-4.0); LYMPHOCYTES % (AUTO) 21 % (12-44); MEAN CORPUSCULAR HEMOGLOBIN 32 PG (25-34); MEAN CORPUSCULAR HGB CONC 35 G/DL (32-36); MEAN CORPUSCULAR VOLUME 93 FL (80-99); MEAN PLATELET VOLUME 9.6 FL (7.4-10.4); MONOCYTES # (AUTO) 0.8 X 10^3 (0.0-1.0); MONOCYTES % (AUTO) 12 % (0-12); NEUTROPHILS # (AUTO) 3.5 X 10^3 (1.8-7.8); NEUTROPHILS % (AUTO) 56 % (42-75); PLATELET COUNT 140 10^3/uL (130-400); RED BLOOD COUNT 3.65 10^6/uL (4.35-5.85); RED CELL DISTRIBUTION WIDTH 12.4 % (10.0-14.5); WHITE BLOOD COUNT 6.2 10^3/uL (4.3-11.0)
--- NOTE | 2018-03-08 09:29 | Progress Note-Hospitalist ---
AGUIRREDONATO 03/08/18 0928: Subjective HPI/CC On Admission Date Seen by Provider: Mar 08, 2018 Time Seen by Provider: 09:00 The patient is a 32-year-old white female who presented to the emergency room yesterday with complaints of fever and generalized malaise. She reported that she had been seen at a walk-in clinic earlier last week and had been diagnosed as having a urinary tract infection and was placed on Cipro. She was then seen again at another facility on Tuesday and told that she did not have a urinary tract infection and the Cipro was stopped. She really return to our emergency room yesterday and it certainly appears that she had a full-blown urinary tract infection the basis of her urine character. She was recently diagnosed as having multiple sclerosis. She has been seen by the neurology Department at [facility] and was started on a new medication about 3 weeks ago. She reports she has not really felt well during this period of time and wonders if that is somehow related. She reports occasional urinary tract infections through her adult life. During the night she had multiple fevers documented with a peak of 103.1. Her white blood count was 7800 in the emergency room and 6300 this morning. She now reports that she is hungry and has not suffered from any nausea. Subjective/Events-last exam Pt is doing well Abdominal pain improved Fever improved Tolerating Rocephin antibiotic well Updated patient and Likely discharge tomorrow Pending labs Low potassium noted Will ambulate today Review of Systems General: Fatigue Gastrointestinal: Abdominal Pain Focused Exam Lactate Level 03/06/18 15:06: Lactic Acid Level 1.01 Objective Exam Vital Signs Vital Signs Date Time Temp Pulse Resp B/P (MAP) Pulse Ox O2 Delivery O2 Flow Rate FiO2 03/08/18 08:00 98.0 94 18 125/72 (89) 98 Room Air Capillary Refill : Less Than 3 Seconds General Appearance: No Apparent Distress, WD/WN Respiratory: Chest Non Tender, Lungs Clear, Normal Breath Sounds, No Accessory Muscle Use, No Respiratory Distress Cardiovascular: Regular Rate, Rhythm, No Edema, No Gallop, No JVD, No Murmur, Normal Peripheral Pulses Neurologic/Psychiatric: Alert, Oriented x3, No Motor/Sensory Deficits, Normal Mood/Affect Results/Procedures Lab Laboratory Tests 03/08/18 09:03 Patient resulted labs reviewed. Assessment/Plan Assessment and Plan Assess & Plan/Chief Complaint Assessment: Sepsis Pyelonephritis Recent MS dx Abdominal pain with N/V-improved Plan: IV abx IVF Ambulate Fever meds Diagnosis/Problems Diagnosis/Problems (1) Sepsis Status: Acute Qualifiers: Sepsis type: sepsis due to unspecified organism Qualified Codes: A41.9 - Sepsis, unspecified organism (2) Urinary tract infection Status: Acute Qualifiers: Urinary tract infection type: site unspecified Hematuria presence: without hematuria Qualified Codes: N39.0 - Urinary tract infection, site not specified (3) Epigastric pain Status: Acute (4) Nausea vomiting and diarrhea Status: Acute (5) Multiple sclerosis Status: Chronic Clinical Quality Measures DVT/VTE Risk/Contraindication: Risk Factor Score Per Nursin RFS Level Per Nursing on Admit: 1=Low/No VTE PPX NEELAM BERNABE MED STUDENT 03/08/18 0944: Subjective Subjective/Events-last exam Patient states that she is feeling better this morning She is describing upper abdominal pain and pain in her back that she says feels like a twisting pressure She reports a cough that is not productive She has not felt like eating Objective Exam General Appearance: No Apparent Distress, WD/WN Respiratory: Chest Non Tender, Lungs Clear, Normal Breath Sounds, No Accessory Muscle Use, No Respiratory Distress Cardiovascular: Regular Rate, Rhythm, No Edema, No Gallop, No JVD, No Murmur Neurologic/Psychiatric: Alert, Oriented x3, No Motor/Sensory Deficits, Normal Mood/Affect Skin: Normal Color, Warm/Dry Assessment/Plan Assessment and Plan Assess & Plan/Chief Complaint Assessment: 1) Sepsis 2) UTI 3) Nausea/vomiting/diarrhea 4) Recent MS diagnosis Plan: 1) Continue IV fluids 2) Continue IV abx 3) Walk up and down hallway 4) IA tomorrow DONATO AGUIRRE DO Mar 08, 2018 09:28 NEELAM BERNABE MED STUDENT Mar 08, 2018 09:44
[2018-03-08 09:33] LABS: ALANINE AMINOTRANSFERASE 14 U/L (0-55); ALBUMIN 2.9 GM/DL (3.2-4.5); ALKALINE PHOSPHATASE 47 U/L (40-136); BILIRUBIN,TOTAL 0.4 MG/DL (0.1-1.0); BUN/CREATININE RATIO 6; CALCIUM 7.7 MG/DL (8.5-10.1); CARBON DIOXIDE 20 MMOL/L (21-32); CHLORIDE 110 MMOL/L (98-107); GFR ESTIMATED > 60; GLUCOSE 86 MG/DL (70-105); POTASSIUM 3.1 MMOL/L (3.6-5.0); SODIUM 141 MMOL/L (135-145); TOTAL PROTEIN 4.8 GM/DL (6.4-8.2)
[2018-03-08] MEDS: fentaNYL INJECTION 100 MCG/2 ML AMP IVP PRN (11:15)
[2018-03-08] MEDS: ONDANSETRON 4 MG/2 ML (SDV) Z0FRAN IV PRN (11:15)
[2018-03-08 12:00] VITALS: BP 115/71
[2018-03-08] MEDS ORDERED: MAGNESIUM 1 GM/100 ML IVPB 100 ML IV ONE (12:15)
[2018-03-08] MEDS: ENOXAPARIN 40 MG/0.4 ML (LOVENOX) SYR SC SCH (12:22)
[2018-03-08] MEDS: POTASSIUM CL 10MEQ/50ML IVPB 50 ML IV SCH ×3 (12:22→14:24)
[2018-03-08] MEDS: POTASSIUM CHLORIDE INJ 10 MEQ in NS IV 1000 ML 1,000 ML IV SCH ×2 (14:25→21:03)
[2018-03-08 16:00] VITALS: BP 111/59
[2018-03-08 20:00] VITALS: BP 114/72
[2018-03-09] VITALS: BP 122/77
[2018-03-09] MEDS: ONDANSETRON 4 MG/2 ML (SDV) Z0FRAN IV PRN ×2 (00:54→09:08)
[2018-03-09] MEDS: IBUPROFEN 600 MG (MOTRIN) TAB PO PRN (01:02)
[2018-03-09] MEDS ORDERED: SCOPOLAMINE 1.5 MG (TRANSDERM-SCOP) PATCH TD ONE (02:00)
[2018-03-09] MEDS ORDERED: PROMETHAZINE INJ 25 MG/ML (PHENERGAN) AMP IM PRN (02:00)
[2018-03-09 04:00] VITALS: BP 120/70
[2018-03-09] MEDS: POTASSIUM CHLORIDE INJ 10 MEQ in NS IV 1000 ML 1,000 ML IV SCH (04:27)
[2018-03-09 04:56] LABS: BASOPHILS % (AUTO) 0 % (0-10); EOSINOPHILS # (AUTO) 0.6 10^3/uL (0.0-0.3); EOSINOPHILS % (AUTO) 9 % (0-10); HEMATOCRIT 36 % (35-52); HEMOGLOBIN 12.5 G/DL (11.5-16.0); LYMPHOCYTES % (AUTO) 15 % (12-44); MEAN CORPUSCULAR HEMOGLOBIN 32 PG (25-34); MEAN CORPUSCULAR HGB CONC 35 G/DL (32-36); MEAN CORPUSCULAR VOLUME 93 FL (80-99); MEAN PLATELET VOLUME 9.7 FL (7.4-10.4); MONOCYTES # (AUTO) 0.6 X 10^3 (0.0-1.0); MONOCYTES % (AUTO) 9 % (0-12); NEUTROPHILS # (AUTO) 4.6 X 10^3 (1.8-7.8); NEUTROPHILS % (AUTO) 67 % (42-75); PLATELET COUNT 169 10^3/uL (130-400); RED CELL DISTRIBUTION WIDTH 12.5 % (10.0-14.5); WHITE BLOOD COUNT 6.8 10^3/uL (4.3-11.0)
[2018-03-09 05:18] LABS: ALANINE AMINOTRANSFERASE 27 U/L (0-55); ALBUMIN 3.2 GM/DL (3.2-4.5); ALKALINE PHOSPHATASE 70 U/L (40-136); BILIRUBIN,TOTAL 0.4 MG/DL (0.1-1.0); BUN/CREATININE RATIO 5; CARBON DIOXIDE 17 MMOL/L (21-32); CHLORIDE 110 MMOL/L (98-107); CREATININE SERUM 0.64 MG/DL (0.60-1.30); GFR ESTIMATED > 60; GLUCOSE 89 MG/DL (70-105); POTASSIUM 3.6 MMOL/L (3.6-5.0); SODIUM 140 MMOL/L (135-145); TOTAL PROTEIN 5.2 GM/DL (6.4-8.2)
[2018-03-09 08:45] VITALS: BP 119/78
[2018-03-09] MEDS: DIMETHYL FUMARATE 240 MG PO SCH (08:59)
[2018-03-09] MEDS: FAMOTIDINE 20 MG (PEPCID) TABLET PO SCH (08:59)
[2018-03-09] MEDS: cefTRIAXone 1 GM/NS 50 ML IVPB IV SCH ×2 (09:00)
[2018-03-09] MEDS ORDERED: SCOP1PAT17 TD (11:05)
[2018-03-09] MEDS ORDERED: ONDA8TAB6 PO (11:05)
[2018-03-09] MEDS ORDERED: CEFD300C3 PO (11:05)
--- NOTE | 2018-03-09 11:09 | Discharge Summary-Hospitalist ---
DONATO AGUIRRE DO 03/09/18 1109: Diagnosis/Chief Complaint Date of Admission Mar 06, 2018 at 15:21 Date of Discharge Discharge Date: Mar 09, 2018 Admission Diagnosis Urinary tract infection. 2.recent diagnosis of multiple sclerosis Discharge Diagnosis (1) Gallbladder sludge Status: Acute (2) Thickening of wall of gallbladder Status: Acute (3) Sepsis Status: Resolved (4) Urinary tract infection Status: Acute (5) Epigastric pain Status: Acute (6) Nausea vomiting and diarrhea Status: Acute (7) Multiple sclerosis Status: Chronic Discharge Summary Discharge Physical Exam Allergies: Coded Allergies: Penicillins (Verified Allergy, Unknown, HIVES, 03/06/18) Had hives with penicillin as a young child. No anaphylaxis. Vitals & I&Os Vital Signs Date Time Temp Pulse Resp B/P (MAP) Pulse Ox O2 Delivery O2 Flow Rate FiO2 03/09/18 18:50 99 16 92/54 96 Room Air 03/09/18 17:20 98.8 General Appearance: WD/WN, Moderate Distress (due to pain and nausea) Respiratory: Chest Non Tender, Lungs Clear, Normal Breath Sounds, No Accessory Muscle Use, No Respiratory Distress Cardiovascular: Regular Rate, Rhythm, No Edema, No Gallop, No JVD, No Murmur, Normal Peripheral Pulses Gastrointestinal: Normal Bowel Sounds, No Organomegaly, No Pulsatile Mass, Soft , Tenderness (RUQ) Neurologic/Psychiatric: Alert, Oriented x3, No Motor/Sensory Deficits, Normal Mood/Affect Hospital Course Hospital course: patient was admitted for sepsis and placed on IVF and abx. N/V treatment was successful until day of planned DC and RUQ abd pain worsened and GB USG obtained which revealed gallbladder sludge and wall thickening prompting consult to Dr Collins for choly. That was completed in an uncomplicated manner. Labs (last 24 hrs) Laboratory Tests 03/09/18 04:42: White Blood Count 6.8, Red Blood Count 3.90L, Hemoglobin 12.5, Hematocrit 36, Mean Corpuscular Volume 93, Mean Corpuscular Hemoglobin 32, Mean Corpuscular Hemoglobin Concent 35, Red Cell Distribution Width 12.5, Platelet Count 169, Mean Platelet Volume 9.7, Neutrophils (%) (Auto) 67, Lymphocytes (%) (Auto) 15, Monocytes (%) (Auto) 9, Eosinophils (%) (Auto) 9, Basophils (%) (Auto) 0, Neutrophils # (Auto) 4.6, Lymphocytes # (Auto) 1.0, Monocytes # (Auto) 0.6, Eosinophils # (Auto) 0.6H, Basophils # (Auto) 0.0, Sodium Level 140, Potassium Level 3.6, Chloride Level 110H, Carbon Dioxide Level 17L, Anion Gap 13, Blood Urea Nitrogen 3L, Creatinine 0.64, Estimat Glomerular Filtration Rate > 60, BUN/ Creatinine Ratio 5, Glucose Level 89, Calcium Level 8.0L, Corrected Calcium 8.6 , Total Bilirubin 0.4, Aspartate Amino Transf (AST/SGOT) 52H, Alanine Aminotransferase (ALT/SGPT) 27, Alkaline Phosphatase 70, Total Protein 5.2L, Albumin 3.2 03/09/18 13:50: Urine Test NEGATIVE Microbiology 03/06/18 Blood Culture - Preliminary, Resulted No growth 03/06/18 Urine Culture - Final, Complete See Report Patient resulted labs reviewed. Pending Labs Laboratory Tests 03/09/18 13:50: Urine Test NEGATIVE Discussion & Recommendations Discharge Planning: <30 minutes discharge planning Discharge Home Medications: Active Scripts Active Hydrocodone/Acetaminophen 5/325mg Tablet (Acetaminophen/Hydrocodone Bitart) 1 Tab Tab 1 Tab PO Q6H PRN MDD 10 Zofran (Ondansetron HCl) 8 Mg Tablet 8 Mg PO Q6H Scopolamine 1 Each Patch.td.3 1 Each TD UD every 3 days prn nausea Cefdinir 300 Mg Capsule 300 Mg PO BID Reported Tecfidera (Dimethyl Fumarate) 1 Each Capsule.dr 1 Cap PO BID Instructions to patient/family Please see electronic discharge instructions given to patient. Clinical Quality Measures DVT/VTE Risk/Contraindication: Risk Factor Score Per Nursin RFS Level Per Nursing on Admit: 1=Low/No VTE PPX NEELAM BERNABE MED STUDENT 03/09/18 1121: Discharge Summary Discharge Physical Exam Allergies: Coded Allergies: Penicillins (Verified Allergy, Unknown, HIVES, 03/06/18) Had hives with penicillin as a young child. No anaphylaxis. General Appearance: No Apparent Distress, WD/WN Respiratory: Chest Non Tender, Lungs Clear, Normal Breath Sounds, No Accessory Muscle Use, No Respiratory Distress Cardiovascular: Regular Rate, Rhythm, No Edema, No Gallop, No JVD, No Murmur Gastrointestinal: Normal Bowel Sounds Skin: Normal Color, Warm/Dry Neurologic/Psychiatric: Alert, Oriented x3, No Motor/Sensory Deficits, Normal Mood/Affect Hospital Course The patient is a 32 year old female that presented to the [facility] ER on Mar 06 with a chief complaint of fever, upper abdominal pain, vomiting, and diarrhea. Her symptoms began on TuesdayFeb.28 and she went to the [facility] in [place] on Mar.02. where she was treated for a UTI with ciprofloxacin. Her symptoms increased over the next few days and she went to [facility] on TuesdayMar.04. CT scan showed gastroenteritis and UA was clear and she was instructed to discontinue the antibiotics. Her symptoms continued to worsen until she presented to [facility] ER. On presentation she was found to have fever and tachycardia and was admitted for observation and treatment. She was administered IVF and IV ceftriaxone and gradually improved over the course of several days. She will be discharged this afternoon following a gallbladder US. Problem Qualifiers (1) Sepsis: Sepsis type: sepsis due to unspecified organism Qualified Codes: A41.9 - Sepsis, unspecified organism (2) Urinary tract infection: Urinary tract infection type: site unspecified Hematuria presence: without hematuria Qualified Codes: N39.0 - Urinary tract infection, site not specified DONATO AGUIRRE DO Mar 09, 2018 11:09 NEELAM BERNABE MED STUDENT Mar 09, 2018 11:21
[2018-03-09] MEDS: fentaNYL INJECTION 100 MCG/2 ML AMP IVP PRN ×2 (11:17→13:56)
[2018-03-09] MEDS ORDERED: PROMETHAZINE 25 MG (PHENERGAN) SUPP PR ONE (11:30)
--- NOTE | 2018-03-09 11:52 | Diagnostic Imaging Report ---
INDICATION: Abdominal pain. TECHNIQUE: Gallbladder sonography was performed in the routine fashion. FINDINGS: The liver shows normal echogenicity with no focal lesions. The gallbladder shows no definite stones but there is some sludge in the gallbladder layering posteriorly. The gallbladder wall does not appear appreciably thickened. The common duct measures 3.9 mm. The pancreas is unremarkable to the extent seen. The right kidney is normal measuring 10.6 cm in length. There is no ascites. The sonographic Horta sign is reported positive. IMPRESSION: There are no definite gallstones in the gallbladder but there is some sludge in the gallbladder. The sonographic Horta sign is positive although the gallbladder wall does not appear to be appreciably thickened. There is no biliary dilatation. If there is clinical concern for acute cholecystitis, consider a Nuclear hepatobiliary study. Dictated by: Dictated on workstation # [id number]
[2018-03-09 12:30] VITALS: BP 108/73
[2018-03-09] MEDS: ENOXAPARIN 40 MG/0.4 ML (LOVENOX) SYR SC SCH (13:11)
[2018-03-09] MEDS ORDERED: LIDOCAINE/EPI 1%-1:100,000 (XYLOCAINE) 20ML ONE (13:31)
[2018-03-09] MEDS ORDERED: LIDOCAINE/EPI 1%-1:200,000 (XYLOCAINE) 10 ML VIAL ONE (13:31)
[2018-03-09] MEDS ORDERED: LIDOCAINE PF 2% 5 ML (XYLOCAINE) VIAL ONE (13:50)
[2018-03-09] MEDS ORDERED: ROCURONIUM 10 MG/ML 5 ML SYRINGE IV ONE (13:50)
[2018-03-09] MEDS ORDERED: MIDAZOLAM 2 MG/2 ML (VERSED) VIAL ONE (13:50)
[2018-03-09] MEDS ORDERED: SEVOFLURANE (ULTANE) 15 ML INHAL SOLN ONE (13:50)
[2018-03-09] MEDS ORDERED: proPOfol 200 MG/20 ML (DIPRIVAN) VIAL IV ONE (13:50)
[2018-03-09] MEDS ORDERED: fentaNYL INJECTION 100 MCG/2 ML AMP ONE ×2 (13:50→15:13)
--- NOTE | 2018-03-09 14:38 | Consultation ---
History of Present Illness History of Present Illness Patient Consulted On(jarvis/time) 03/09/18 14:31 Time Seen by Provider: 12:01 History of Present Illness Surgery asked to consult regarding GB sludge and wall thickening. HPI per IM: The patient is a 32-year-old white female who presented to the emergency room yesterday with complaints of fever and generalized malaise. She reported that she had been seen at a walk-in clinic earlier last week and had been diagnosed as having a urinary tract infection and was placed on Cipro. She was then seen again at another facility on Tuesday and told that she did not have a urinary tract infection and the Cipro was stopped. She really return to our emergency room yesterday and it certainly appears that she had a full-blown urinary tract infection the basis of her urine character. She was recently diagnosed as having multiple sclerosis. She has been seen by the neurology Department at [facility] and was started on a new medication about 3 weeks ago. She reports she has not really felt well during this period of time and wonders if that is somehow related. She reports occasional urinary tract infections through her adult life. During the night she had multiple fevers documented with a peak of 103.1. Her white blood count was 7800 in the emergency room and 6300 this morning. She now reports that she is hungry and has not suffered from any nausea. When I spoke to her this afternoon she stated she has had pain since a week ago Tuesday. She does not think the pain is associated with certain foods. She was treated for UTI but the pain didn't improve. She rates the pain as 6 out of 10 on a 1-10 scale. Denies radiation of the pain and describes it as crampy , poking pain. Allergies and Home Medications Allergies Coded Allergies: Penicillins (Verified Allergy, Unknown, HIVES, 03/06/18) Had hives with penicillin as a young child. No anaphylaxis. Home Medications Cefdinir 300 Mg Capsule, 300 MG PO BID Prescribed by: DONATO AGUIRRE on 03/09/18 1105 Ciprofloxacin HCl 500 Mg Tablet, 500 MG PO BID, (Reported) 7 DAY SUPPLY FILLED 03-02-18 Dimethyl Fumarate 1 Each Capsule.dr, 1 CAP PO BID, (Reported) Ondansetron HCl 8 Mg Tablet, 8 MG PO Q6H Prescribed by: DONATO AGUIRRE on 03/09/18 1105 Scopolamine 1 Each Patch.td.3, 1 EACH TD UD every 3 days prn nausea Prescribed by: DONATO AGUIRRE on 03/09/18 1105 Patient Home Medication List Home Medication List Reviewed: Yes Past Kjvdvya-Xvzddj-Oaohoz Hx Patient Social History Alcohol Use: Occasionally Uses Recreational Drug Use: No Smoking Status: Current Everyday Smoker Type Used: Cigarettes Recent Foreign Travel: No Contact w/Someone Who Travel: No Recent Infectious Disease Expo: No Recent Hopitalizations: No Physical Abuse Screen: No Sexual Abuse: No Immunizations Up To Date Tetanus Booster (TDap): Unknown PED Vaccines UTD: Yes Seasonal Allergies Seasonal Allergies: No Surgeries History of Surgeries: No Respiratory History of Respiratory Disorde: No Cardiovascular History of Cardiac Disorders: No Neurological History of Neurological Disord: Yes Neurological Disorders: Multiple Sclerosis Genitourinary History of Genitourinary Disor: No Gastrointestinal History of Gastrointestinal Di: No Musculoskeletal History of Musculoskeletal Dis: Yes (MS) Endocrine History of Endocrine Disorders: No HEENT History of HEENT Disorders: No Cancer History of Cancer: No Psychosocial History of Psychiatric Problem: No Integumentary History of Skin or Integumenta: No Blood Transfusions History of Blood Disorders: No Family Medical History Significant Family History: CAD Over 55 Years Old (Mother had MV replacements) , COPD (Mother who also has CHF), Diabetes (Father and sisters) Review of Systems-General Constitutional: chills, diaphoresis, malaise, weakness EENTM: No blurred vision, No double vision, No eye pain, No mouth swelling, No epistaxis Respiratory: No cough, No dyspnea on exertion, No hemoptysis, No short of breath Cardiovascular: No chest pain, No edema, No palpitations Gastrointestinal: RUQ, LUQ; No hematemesis, No jaundice; loss of appetite, nausea Genitourinary: dysuria, frequency; No hematuria, No hesitancy Musculoskeletal: joint pain, joint swelling, muscle pain, muscle stiffness, muscle weakness Skin: No change in color, No change in hair/nails Psychiatric/Neurological: Denies Anxiety, Denies Depressed, Denies Seizure; Tingling, Weakness Other pt denies any abnormal bleeding or bruising and no heat or cold intolerance Physical Exam-General Problems Physical Exam Vital Signs Vital Signs - First Documented 03/06/18 14:00 Temp 101.0 Pulse 112 Resp 18 B/P (MAP) 134/84 (101) Pulse Ox 98 O2 Delivery Room Air Capillary Refill : Less Than 3 Seconds General Appearance: WD/WN, mild distress Eyes: Bilateral Eye PERRL, Bilateral Eye EOMI HEENT: pharynx normal; No scleral icterus (R), No scleral icterus (L), No pale conjunctivae (R), No pale conjunctivae (L) Neck: non-tender, supple; No thyromegaly Respiratory: chest non-tender, lungs clear, normal breath sounds, no respiratory distress, no accessory muscle use Cardiovascular: regular rate, rhythm, no edema, no murmur Gastrointestinal: normal bowel sounds, soft, no organomegaly, no pulsatile mass , guarding (voluntary), tenderness (B/L UQ) Back: no CVA tenderness, no vertebral tenderness Extremities: normal range of motion, non-tender, normal inspection, no pedal edema, no calf tenderness 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, no motor/sensory deficits, alert, normal mood/affect, oriented x 3 Skin: normal color, warm/dry Lymphatic: no adenopathy (neck, axilla or groin) Data Review Labs Laboratory Tests 03/09/18 04:42: White Blood Count 6.8, Red Blood Count 3.90L, Hemoglobin 12.5, Hematocrit 36, Mean Corpuscular Volume 93, Mean Corpuscular Hemoglobin 32, Mean Corpuscular Hemoglobin Concent 35, Red Cell Distribution Width 12.5, Platelet Count 169, Mean Platelet Volume 9.7, Neutrophils (%) (Auto) 67, Lymphocytes (%) (Auto) 15, Monocytes (%) (Auto) 9, Eosinophils (%) (Auto) 9, Basophils (%) (Auto) 0, Neutrophils # (Auto) 4.6, Lymphocytes # (Auto) 1.0, Monocytes # (Auto) 0.6, Eosinophils # (Auto) 0.6H, Basophils # (Auto) 0.0, Sodium Level 140, Potassium Level 3.6, Chloride Level 110H, Carbon Dioxide Level 17L, Anion Gap 13, Blood Urea Nitrogen 3L, Creatinine 0.64, Estimat Glomerular Filtration Rate > 60, BUN/ Creatinine Ratio 5, Glucose Level 89, Calcium Level 8.0L, Corrected Calcium 8.6 , Total Bilirubin 0.4, Aspartate Amino Transf (AST/SGOT) 52H, Alanine Aminotransferase (ALT/SGPT) 27, Alkaline Phosphatase 70, Total Protein 5.2L, Albumin 3.2 03/09/18 13:50: Urine Test NEGATIVE Microbiology 03/06/18 Blood Culture - Preliminary, Resulted No growth 03/06/18 Urine Culture - Final, Complete See Report Assessment/Plan Assessment/Plan Assessment/Plan Acute Cholelithiasis with Cholecystitis MS Recently treated for UTI Pt had US which showed sludge in the gallbladder and thickened GB wall. Plan is to take pt to OR for Lap zack with IOC, possible open. Discussed risks and complications with pt and family; not limited to pain, bleeding, infection, scar, damage to bowel or bile duct and need for further procedure. All questions answered to their satisfaction. She is already on IV fluids, IV ABX and pain meds as well as anti-emetics. Clinical Quality Measures DVT/VTE Risk/Contraindication: Risk Factor Score Per Nursin RFS Level Per Nursing on Admit: 1=Low/No VTE PPX KAREEM RASHID DO Mar 09, 2018 14:38
[2018-03-09] MEDS ORDERED: DEXAMETHASONE 10 MG/ML (DECADRON) 1 ML VIAL ONE (14:47)
[2018-03-09] MEDS ORDERED: ONDANSETRON 4 MG/2 ML (SDV) Z0FRAN ONE (14:47)
[2018-03-09] MEDS ORDERED: LACTATED RINGERS 1,000 ML IV PRN (14:48)
[2018-03-09] MEDS ORDERED: SUCCINYLCHOLINE INJ 100 MG/5 ML SYR ONE (14:51)
[2018-03-09] MEDS ORDERED: DESFLURANE (SUPRANE) 15 ML INHAL SOLN ONE ×2 (15:12→15:47)
[2018-03-09] MEDS ORDERED: PHENYLEPHRINE 100 MCG/ML 10 ML (ANESTHESIA) SYR ONE (15:25)
[2018-03-09] MEDS ORDERED: NEOSTIGMINE 1 MG/ML 5 ML SYRINGE ONE (15:39)
[2018-03-09] MEDS ORDERED: GLYCOPYRROLATE 0.2 MG/ML (ROBINUL) 2 ML VIAL ONE (15:39)
[2018-03-09] MEDS ORDERED: HYDROmorphone 2 MG/ML VIAL (DILAUDID) ONE (15:40)
[2018-03-09] MEDS ORDERED: KETOROLAC 30 MG/ML VIAL ONE (15:41)
--- NOTE | 2018-03-09 15:47 | Progress Note-Post Operative ---
Post-Operative Progess Note Surgeon (s)/Scooper (s) Surgeon KAREEM RASHID DO Scooper: Sarah Pre-Operative Diagnosis Acute Cholecystitis/Cholelithiasis Post-Operative Diagnosis Same plus fatty liver Procedure & Operative Findings Date of Procedure 03/09/18 Procedure Performed/Findings Lap Bhargavi with IOC Anesthesia Type GET Estimated Blood Loss Estimated blood loss (mL): scant Specimens/Packing Specimens Removed GB and contents KAREEM RASHID DO Mar 09, 2018 15:47
--- NOTE | 2018-03-09 15:49 | Discharge Inst-Surgical ---
Discharge Inst-Surgical Depart Medication/Instructions New, Converted or Re-Newed RX: RX Given to Pt/Family Patient Instructions Follow up Appt: Make appointment for 1 week. Instructions: No lifting greater than 20 pounds. No strenuous activity. May shower in 24 hours, no tub bath or soaking. Use incentive spirometer at home as directed. No Smoking Skin/Wound Care: May remove band-aids in am. You need to leave the Dermabond on over incision it will fall off on its own. Symptoms to Report: Appetite Changes, Extremity Discoloration, Numbness/Tingling, Swelling Increased , Bleeding Excessive, Eyesight Changes, Pain Increased, Urine Color Change, Constipation(Persistent), Fever over 101 degree F, Pain/Pressure in chest, Urinating Difficulty, Cough Up/Vomit Blood, Heart Beat Irreg/Pounding, Pain/ Pressure in jaw, Vaginal Bleeding Increase, Cramps in feet or legs, Lightheadedness, Pain/Pressure in shoulder, Diarrhea(Persistent), Memory Changes Suddenly, Questions/Concerns, Weight gain consecutive days, Dizziness/ Fainting, Nausea/Vomiting, Shortness of Breath, Weight gain over 2 pounds If questions or concerns contact your physician Or seek help at emergency department. Activity Activity as Tolerated: Yes Activity Instructions: Avoid Stress to Incision Driving Instructions: No Driving/Refer to Diet Discharge Diet: Avoid Fatty Foods, Low Fat/Low Cholesterol Diet After 24 Hours: Clear Liquid if Nauseous If Any Problems/Questions/Issu: Contact Your Physician, Go to Emergency Room Skin/Wound Care Infection Signs and Symptoms: Increased Redness, Foul Odor of Wound, Increased Drainage, Skin Itchy or Has a Rash, Increased Swelling, Temperature Above 101 F Wound Care Comment: heating pad to neck or shoulder tonight for pain Stitches/Tyree/Dermabond Dis: Dermabond Ice Pack: Ice On and Off Site (as needed for pain) KAREEM RASHID DO Mar 09, 2018 15:49
[2018-03-09] MEDS ORDERED: ACHD5005 PO (15:50)
--- NOTE | 2018-03-09 16:06 | Diagnostic Imaging Report ---
INDICATION: Abdominal pain, cholecystectomy. EXAMINATION: Operative cholangiogram was performed in the routine fashion with injection of the cystic duct stump in surgery. FINDINGS: Contrast fills the biliary tree. There are no filling defects in the common duct. Contrast passes to the duodenum without obstruction. 14 seconds of fluoroscopy time was used. IMPRESSION: Unremarkable operative cholangiogram. Dictated by: Dictated on workstation # [id number]
[2018-03-09] MEDS ORDERED: HYDROmorphone 2 MG/ML VIAL (DILAUDID) IV ONE (16:15)
[2018-03-09] MEDS ORDERED: ONDANSETRON 4 MG/2 ML (SDV) Z0FRAN IVP PRN (16:15)
--- NOTE | 2018-03-09 16:28 | Anesthesia-General Post-Op ---
General Patient Condition Mental Status/LOC: Same as Preop Cardiovascular: Satisfactory Nausea/Vomiting: Absent Respiratory: Satisfactory Pain: Controlled Complications: Absent Post Op Complications Complications None Follow Up Care/Instructions Patient Instructions None needed. Anesthesia/Patient Condition Patient Condition Patient is doing well, no complaints, stable vital signs, no apparent adverse anesthesia problems. No complications reported per nursing. D/C home per [facility] [place] Criteria: Yes CHAYITO MOYA CRNA Mar 09, 2018 16:28
[2018-03-09 17:20] VITALS: BP 92/54
[2018-03-09 18:50] VITALS: BP 92/54
--- NOTE | 2018-03-09 23:54 | OPERATIVE REPORT ---
DATE OF SERVICE: PREOPERATIVE DIAGNOSES: Acute cholecystitis, cholelithiasis. POSTOPERATIVE DIAGNOSES: Acute cholecystitis, cholelithiasis, fatty liver. PROCEDURE: Laparoscopic cholecystectomy, intraoperative cholangiogram. SURGEON: Chevy Rashid DO LIME TRIMMER: Henrique Smith DO. ANESTHESIA: General endotracheal tube. SPECIMEN: Gallbladder and contents. BLOOD LOSS: Scant. FLUIDS: Per anesthesia. POSTOPERATIVE CONDITION: Stable. INDICATION FOR PROCEDURE: The patient is a 32-year-old female who has been having pain in the right upper quadrant and left upper quadrant for about a week and a half, has been getting progressively worse with loss of appetite. They were unable to find the source and today had an ultrasound performed, which showed sludge in the gallbladder and positive Horta sign. It had been relayed to me that she had some gallbladder wall thickening on ultrasound; however, this was not correct. She did not have gallbladder wall thickening. FINDINGS: The patient did have adhesions of the gallbladder. This is usually indicative of gallbladder attacks, the omentum and the duodenum where it attached to the gallbladder and she did have fatty liver. PROCEDURE NOTE: After informed consent was obtained, the patient was brought to the operating room, placed on operating table in supine position. She was sterilely prepped and draped in normal fashion. Local lidocaine was used to infiltrate the skin above the umbilicus. Made an incision with #11 blade, carried down through the skin into the subcutaneous tissue, then deepened down through subcutaneous tissue with Bovie electrocautery down to the fascia. Fascia incised with Bovie electrocautery and bluntly entered the abdomen, swept a finger around, placed 0 Vicryl [id number] suture and placed an 11 mm trocar port under direct visualization. Created pneumoperitoneum and then placed 3 more ports in normal fashion using local lidocaine, 11 blade for stab incision and the VersaStep system, all done under direct visualization, 1 in the subxiphoid and 2 in the right upper quadrant. The patient then placed slightly reverse Trendelenburg and rotated to the left. Able to grasp the gallbladder at the fundus, but there were lot of adhesions, so these were carefully taken down with Bovie electrocautery as well as blunt dissection. Once able to free up the omentum, then noted that the duodenum was attached to the bottom portion of the gallbladder down to Lakhwinder's pouch. These were carefully taken down with blunt dissection. The gallbladder wall did not look thickened. Finally, able to grasp down to Luciano's pouch and pulled in the inferolateral direction and start dissecting out the cystic duct and cystic artery, able to get around the cystic duct and cystic artery, placed 1 clip distally on the cystic duct and 1 distally and 1 proximally on the cystic artery. Cut the cystic duct mcc through Metzenbaum scissors, placed a cholangiogram catheter and shot a cholangiogram. Good spillage of dye down the cystic duct into the common bile duct and into the small intestine as well as up into common hepatic and right and left hepatics. Removed the cholangiogram catheter, placed 2 clips proximally on the cystic duct and cut the cystic duct and cystic artery with Metzenbaum scissors, then removed the gallbladder from bed of liver with L-hook cautery, which was completely removed, placed a bag in the abdomen, placed the gallbladder in the bag and then removed through the supraumbilical incision. Placed the port back in the abdomen, copiously irrigated the belly with normal saline. This was then suctioned up. There was no bleeding at the end the case. Looked around, no other obvious pathology. We did not move any other intestine, was able to see the appendix, it looked normal and at this time, placed the patient back in supine position, removed all ports under direct visualization, allowed pneumoperitoneum to escape and then closed the supraumbilical incision, closing the fascia with 0 Vicryl suture previously placed. Copiously irrigated all incisions with normal saline, then closed the three small 5 mm incisions with a single interrupted 4-0 undyed Monocryl subcuticular stitch, closed supraumbilical incision with 3 interrupted 4-0 undyed Monocryl subcuticular stitches. Area was cleaned and dried and Dermabond placed as well as Band-Aids. The patient then transferred to recovery room in stable condition. Sponge, instrument and needle count correct at the end of the case. Dr. Smith assisted in this case helping to make incisions, close incisions, hold the anatomy and helped identify the anatomy. Job ID: [id number] DocumentID: [id number] Dictated Date: 03/09/2018 16:23:03 Engine Lathe Tender Date: 03/09/2018 23:54:26 Dictated By: CHEVY RASHID DO
== END 2018-03-09 18:50 | disposition home or self-care (01) | DRG 854 ==
LOC: EDUNIT# 13:21 → ER 13:23 → 4TH 15:21
PROVIDERS: ADMIT Internal Medicine; ATTEND Internal Medicine
PROC: 0FT44ZZ Resection of Gallbladder, Percutaneous Endoscopic Approach (ICD-10-PCS; principal; 2018-03-06)
PROC: BF101ZZ Fluoroscopy of Bile Ducts using Low Osmolar Contrast (ICD-10-PCS; 2018-03-06)
DX: A41.9 Sepsis, unspecified organism (principal); N39.0 Urinary tract infection, site not specified; K80.00 Calculus of gallbladder with acute cholecystitis without obstruction; K76.0 Fatty (change of) liver, not elsewhere classified; F17.210 Nicotine dependence, cigarettes, uncomplicated; G35 Multiple sclerosis
CPT/HCPCS: 36415; 76705; 80048; 80053; 81000; 83605; 83690; 84703; 85025; 87040; 87081; 87088; 94664; 96365; 96375

== ENCOUNTER → 2018-05-09 | Outpatient (CLI) | payer BC ==
[~2018-05-09] MED LIST changes: +ACHD5005 PO; +CEFD300C3 PO; +CIPR500T4 PO; +DIME1CAP PO; +GADOBUTROL 7.5 MMOL/7.5 ML (GADAVIST) VIAL IV ONE; +ONDA8TAB6 PO; +SCOP1PAT17 TD
--- NOTE | 2018-05-09 12:25 | Diagnostic Imaging Report ---
PROCEDURE: MR imaging of the brain with and without contrast. TECHNIQUE: Multiplanar, multisequence MR imaging of the brain was performed with and without contrast. INDICATION: Multiple sclerosis. Headaches. COMPARISON: MRI brain without and with IV contrast from 12/16/2017. FINDINGS: Again seen are the periventricular and subcortical T2 hyperintensities in the supratentorial white matter. Several of these are along the corpus callosum and demonstrate a morphology consistent with a demyelinating process. There are no new abnormal T2 foci at this time. There is no abnormal intracranial enhancement. Normal morphology including the major midline structures, sella, posterior fossa, and cerebellopontine angle. No restricted water diffusion or hemosiderin deposition. No hydrocephalus or extra-axial fluid collections. Normal intracranial flow voids. The orbits are unremarkable on this nondedicated exam. The paranasal sinuses and mastoids are clear. Normal bone marrow signal. IMPRESSION: Stable T2 hyperintensities in the supratentorial white matter demonstrating a distribution or morphology strongly suspicious for a demyelinating process. No new abnormal intracranial signal to suggest progression. No abnormal intracranial enhancement to suggest active demyelination. Dictated by: Dictated on workstation # [id number]
== END ==
LOC: RAD 09:18
PROVIDERS: ATTEND Psychiatry & Neurology Neurology
DX: G35 Multiple sclerosis (principal); R90.82 White matter disease, unspecified
CPT/HCPCS: 70553

== ENCOUNTER → 2018-11-10 | Outpatient (CLI) | payer BC ==
--- NOTE | 2018-11-10 17:34 | Diagnostic Imaging Report ---
PROCEDURE: MR imaging of the brain with and without contrast. TECHNIQUE: Multiplanar, multisequence MR imaging of the brain was performed with and without contrast. INDICATION: Multiple sclerosis, demyelination. COMPARISON: 05/09/2018. FINDINGS: Again seen is abnormal signal changes in the periventricular and subcortical white matter, compatible with a demyelinating pattern. This is unchanged and appears stable. There is no abnormal enhancement to suggest an active demyelinating process. There is no mass. Extra-axial spaces appear grossly unremarkable. Craniocervical junction anatomy is intact. There is no focus of acute ischemia or hemorrhage. Ventricular size is stable. Paranasal sinuses and mastoids are clear. Venous and arterial flow voids are normal. Craniocervical junction anatomy is normal. IMPRESSION: Stable abnormal T2 signal in the subcortical and periventricular white matter, consistent with demyelination. There is no abnormal enhancement to suggest an active process. Dictated by: Dictated on workstation # [id number]
== END ==
LOC: RAD 16:21
PROVIDERS: ATTEND Psychiatry & Neurology Neurology
DX: G93.89 Other specified disorders of brain (principal); G35 Multiple sclerosis
CPT/HCPCS: 70553

== ENCOUNTER → 2019-05-15 | Outpatient (CLI) | payer BC, OTHER ==
[~2019-05-15] MED LIST changes: -GADOBUTROL 7.5 MMOL/7.5 ML (GADAVIST) VIAL IV ONE
--- NOTE | 2019-05-15 14:32 | Diagnostic Imaging Report ---
INDICATION: Screening The current study was also evaluated with a Computer Aided Detection (CAD) system. 3-D Tomographic imaging was also performed. INDICATION: Screening. No prior examination available for comparison. This is baseline exam. FINDINGS: The fibroglandular tissue is heterogeneously dense bilaterally. There is no dominant mass, spiculated lesion or suspicious calcification identified. Skin, nipples and axillae are unremarkable. IMPRESSION: Category 1 negative. Dictated by: Dictated on workstation # [id number]
== END ==
LOC: RAD 12:36
PROVIDERS: ATTEND Obstetrics & Gynecology
DX: Z12.31 Encounter for screening mammogram for malignant neoplasm of breast (principal)
CPT/HCPCS: 77067

== ENCOUNTER → 2019-05-16 | Outpatient (CLI) | payer BC ==
[~2019-05-16] MED LIST changes: +GADOBUTROL 7.5 MMOL/7.5 ML (GADAVIST) VIAL IV ONE
--- NOTE | 2019-05-16 15:30 | Diagnostic Imaging Report ---
PROCEDURE: MR imaging of the brain with and without contrast. TECHNIQUE: Multiplanar, multisequence MR imaging of the brain was performed with and without contrast. INDICATION: Multiple sclerosis. COMPARISON: 11/10/2018. FINDINGS: Again seen are moderate T2 hyperintensities in the supratentorial white matter, many of which are oriented perpendicularly to the lateral ventricles. No infratentorial lesions are identified. No abnormal intracranial enhancement. No new abnormal intracranial signal. Normal morphology including the major midline structures, sella, posterior fossa, and cerebellar pontine angle. Normal intra-cranial flow voids. No hydrocephalus or extra-axial fluid collections. The orbits are negative. The visualized paranasal sinuses and mastoids are clear. Normal bone marrow signal. IMPRESSION: Stable T2 hyperintensities in the periventricular supratentorial white matter would be compatible with a demyelinating process. No new abnormal intracranial signal. No active intracranial enhancement. Dictated by: Dictated on workstation # [id number]
== END ==
LOC: RAD 13:34
PROVIDERS: ATTEND Psychiatry & Neurology Neurology
DX: G35 Multiple sclerosis (principal)
CPT/HCPCS: 70553

== ENCOUNTER → 2019-11-16 | Outpatient (CLI) | payer BC, OTHER ==
[~2019-11-16] MED LIST changes: -GADOBUTROL 7.5 MMOL/7.5 ML (GADAVIST) VIAL IV ONE
--- NOTE | 2019-11-16 16:21 | Diagnostic Imaging Report ---
PROCEDURE: MR imaging of the brain without contrast. TECHNIQUE: Multiplanar, multisequence MR imaging of the brain was performed without contrast. INDICATION: Multiple sclerosis. This study is performed for followup. Correlation is made with prior MRI of the brain from 05/16/2019. The ventricular size and sulcal pattern are appropriate for the patient's age. There is no midline shift. No acute intra-axial or extra-axial hemorrhage is detected. The normal expected flow-voids within the carotid siphons are seen. Corpus callosum is unremarkable. The sella and parasellar structures are unremarkable. The previously noted periventricular white matter lesions, and several oriented perpendicular to the ventricles are again noted and appear unchanged. No new white matter lesion is detected. No diffusion restriction is identified to suggest acute ischemia. IMPRESSION: Stable periventricular white matter lesions when compared with prior exam from 05/16/2019. Dictated by: Dictated on workstation # [id number]
--- NOTE | 2019-11-16 16:45 | Diagnostic Imaging Report ---
PROCEDURE: MR imaging cervical spine without contrast. TECHNIQUE: Multiplanar, multisequence MR imaging of the cervical spine was performed without contrast. INDICATION: Multiple sclerosis. Studies performed for routine checkup. Correlation is made with prior MRI of the cervical spine from 12/29/2017. Cervical spine alignment is normal. The vertebral body marrow signal is unremarkable. No marrow replacing lesion is seen. There is some mild disc desiccation from C2-C3 through C5-C6 levels, mild degenerative change. Disc heights are fairly well-maintained. There is normal homogeneous signal intensity throughout the cervical spinal cord. No abnormal T2 signal is detected. Craniocervical junction is unremarkable. C2-C3: No central canal or neural foraminal stenosis is identified. C3-C4: Minimal endplate osteophyte is seen but no central canal or neural foraminal stenosis is seen. C4-C5: No central canal or neural foraminal narrowing is detected. C5-C6: Minimal endplate osteophytes are noted. There is no central canal or neural foraminal stenosis. C6-C7: No central canal or neural foraminal narrowing is seen. C7-T1: No central canal or neural foraminal narrowing is detected. Paraspinous tissues are unremarkable. IMPRESSION: 1. Mild cervical spondylosis. No focal disc protrusion, central canal or neural foraminal stenosis is detected. 2. No abnormal cervical spinal cord signal is identified. Dictated by: Dictated on workstation # [id number]
== END ==
LOC: RAD 14:45
PROVIDERS: ATTEND Psychiatry & Neurology Neurology
DX: G35 Multiple sclerosis (principal)
CPT/HCPCS: 70551; 72141

== ENCOUNTER → 2021-07-24 | Outpatient (CLI) | payer OTHER ==
[~2021-07-24] MED LIST changes: -CIPR500T4 PO; +CIPR500T5 PO; +GADOTERATE 0.5 MMOL/ML (CLARISCAN) 20 ML VIAL IV ONE
--- NOTE | 2021-07-24 16:06 | Diagnostic Imaging Report ---
PROCEDURE: MR imaging of the brain with and without contrast. TECHNIQUE: Multiplanar, multisequence MR imaging of the brain was performed with and without contrast. INDICATION: Numbness from the mid abdomen into the lower extremities. History of multiple sclerosis. Follow-up. COMPARISON: 11/16/2019. FINDINGS: Focal areas of T2 hyperintense signal are visualized in the periventricular and juxtacortical white matter involving the bilateral cerebral hemispheres. A lesion in the left mahoney radiata demonstrates associated restricted diffusion. Other lesions demonstrate T2 shine through on diffusion imaging. No associated midline shift or mass effect. A small amount of post contrast enhancement is visualized involving the lesion in the left mahoney radiata. No acute ischemia, mass, or hemorrhage. The ventricles, cortical sulci, and basilar cisterns are symmetric and unremarkable. The sellar and suprasellar regions have a normal appearance. The brainstem and posterior fossa are unremarkable. The paranasal sinuses and mastoid air cells demonstrate normal signal characteristics. The globes and orbits are symmetric and unremarkable. The scalp and calvarium have a normal appearance. IMPRESSION: 1. Interval increase in burden of demyelinating plaques in the bilateral cerebral hemispheres. A focal lesion in the left mahoney radiata demonstrates postcontrast enhancement and restricted diffusion, consistent with active demyelination. Recommend continued follow-up as indicated. 2. No acute ischemia, mass, or hemorrhage. Dictated by: Dictated on workstation # [id number]
== END ==
LOC: RAD 14:45
PROVIDERS: ATTEND Psychiatry & Neurology Neurology
DX: G93.9 Disorder of brain, unspecified (principal); G35 Multiple sclerosis
CPT/HCPCS: 70553